=== PATIENT | male | born 1970 | race Two or more races ===

== ENCOUNTER 2024-02-06 11:10 | Emergency (ER) | payer BC, OTHER, SELFPAY ==
[2024-02-06 11:12] VITALS: BP 155/97
[2024-02-06 11:33] LABS: % Basophils 0.5 % (0-2); % Eosinophils 0.4 % (0-6); % Immature Granulocytes 0.3 % (0-0.5); % Lymphocytes 38.5 % (20.5-51.1); % Monocytes 7.9 % (1.7-9.3); % Neutrophils 52.4 % (42.2-75.2); Absolute Basophils 0.1 10^3/uL (0-0.2); Absolute Monocytes 0.8 10^3/uL (0.1-0.6); Absolute Neutrophils 5.4 10^3/uL (1.4-6.5); Hematocrit 47.1 % (39.0-52.0); Hemoglobin 16.7 g/dL (13.0-18.0); Mean Corp Hgb Conc. 35.5 g/dL (33.0-37.0); Mean Corpuscular Hgb 32.7 pg (27.0-31.0); Mean Corpuscular Volume 92.2 fL (80.0-94.0); Mean Platelet Volume 10.1 fL (7.4-10.4); Nucleated Red Blood Cells % 0 % (-); Platelet Count 259 10^3/uL (130-400); Red Blood Cell Count 5.11 10^6/uL (4.70-6.10); Red Cell Dist. Width 13.2 % (11.5-14.5); White Blood Cell Count 10.4 10^3/uL (4.8-10.8)
[2024-02-06 11:50] LABS: ALT (SGPT) 43 U/L (0-50); AST (SGOT) 40 U/L (17-59); Albumin 5.3 g/dl (3.5-5.0); Alkaline Phosphatase 78 U/L (38-126); Blood Urea Nitrogen 19 mg/dl (9-20); Calcium 10.3 mg/dl (8.4-10.2); Carbon Dioxide 25 mmol/L (22-30); Chloride 101 mmol/L (98-107); Glucose 109 mg/dl (70-99); Potassium 4.4 mmol/L (3.5-5.1); Sodium 142 mmol/L (135-145); Total Bilirubin 1.1 mg/dl (0.2-1.3); Total Protein 8.1 g/dl (6.3-8.2); eGFR > 60.00
--- NOTE | 2024-02-06 12:21 | ED.GENMED ---
Addendum entered and electronically signed by Kailee Johnston PA-C 02/07/24 15:16:
I was notified that patient's medication was not sent to the pharmacy. I transmitted Zofran to his pharmacy.
Original Note:
History of Present Illness
General
Chief Complaint: Dizziness
Source: patient
Exam Limitations: none
Time Seen by Provider: 02/06/24 11:46
Nursing documentation reviewed up to this point in time: agreed with
History of Present Illness
History of Present Illness:
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
room was spinning and he got queasy, he had to lay back down and be still for the symptoms to resolve. He felt little better and a short while later got up and walked to his kitchen at 715 and again the spinning suddenly got worse, he laid down and
he felt better. Same thing happened later when he got up to go to the bathroom so he came here.
Patient denies headache, no recent trauma, denies change in vision.
He states his mother has severe vertigo.
Past History
Past History
ED Past Medical History: HTN
ED Past Surgical History: None
Phy Exam
Physical Exam
Physical Exam:
GENERAL: No acute distress. A&Ox3.
CONSTITUTIONAL: Afebrile.
EYES: PERRL, conjunctivae normal
Neck: Supple
ENMT: moist mucus membranes, Pharynx nl, TMs normal
RESPIRATORY: Regular respirations, nonlabored, lungs clear.
CARDIOVASCULAR: Regular rate and rhythm, no murmurs, no rubs.
GI: Soft, nontender, normal BS
MUSCULOSKELETAL: Moves with ease. Well perfused.
SKIN: Warm, dry, pink
PSYCH: Normal mood and affect. Well kept, interactive and appropriate
NEUROLOGIC: Awake, alert and oriented. No focal neurological deficits. Asymptomatic laying still on stretcher. Finger to nose intact. Strength equal throughout.
Course
Orders/Labs/Results
Orders:
Orders
02/06/24 11:16
Electrocardiogram (*1) Urgent
Reason for Study: Vertigo / Dizzy
EKG- Treatment ONCE
02/06/24 11:19
CMP [Comprehensive Metabolic Panel] Urgent
Complete Blood Count/With Diff Urgent
02/06/24 12:20
Physical Therapy Consult [Pt Eval And Treat] Urgent
Treatment: severe room spinning dizziness
Activity Level: As Tolerated
02/06/24 14:15
Meclizine [Antivert] 25 mg PO NOW STA
02/06/24 14:35
CT Head & Neck Angio W/wo IV Urgent
Comment:
Reason For Exam: dizziness
02/06/24 17:11
Ondansetron Injectable [Zofran] 4 mg IV NOW STA
Abnormal Lab Results
02/06/24
11:19
MCH 32.7 H pg
(27.0-31.0)
Absolute Lymphs (auto) 4.0 H 10^3/uL
(1.2-3.4)
Absolute Monos (auto) 0.8 H 10^3/uL
(0.1-0.6)
Glucose 109 H mg/dl
(70-99)
Calcium 10.3 H mg/dl
(8.4-10.2)
Albumin 5.3 H g/dl
(3.5-5.0)
02/06/24 11:19
02/06/24 11:19
Vital Signs
Initial and Last Documented VS:
Initial Vital Signs
Temp Pulse Resp BP Pulse Ox
98.0 F 79 18 155/97 100
02/06/24 11:12 02/06/24 11:12 02/06/24 11:12 02/06/24 11:12 02/06/24 11:12
Last Documented Vital Signs
Temp Pulse Resp BP Pulse Ox
98.0 F 76 12 140/98 99
02/06/24 11:12 02/06/24 16:31 02/06/24 16:31 02/06/24 16:30 02/06/24 16:31
MDM/Problems Addressed
Differential Diagnosis Includes:
BPPV, vestibular neuritis, CVA
MDM/Problems Addressed:
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
room was spinning and he got queasy, he had to lay back down and be still for the symptoms to resolve. He felt little better and a short while later got up and walked to his kitchen at 7:15 and again the spinning suddenly got worse, he laid down
and he felt better. Same thing happened later when he got up to go to the bathroom so he came here.
Patient denies headache, no recent trauma, denies change in vision.
He states his mother has severe vertigo.
EKG NSR
P/T in to evaluate, states negative for BPPV, negative for vestibular neuritis with use of 'binoculars,' neg orthostasis, she states his neck is significantly stiffened with a rotation to either side of only 10 degrees due to his chronic neck
issues. His neck muscles are very tight and she wonders if it might be a cervicogenic headache.
2:15 p.m.
In to re evaluate
Pt states he's been in P/T twice a week for past two months for neck pain and pain in left arm, these are nothing new
He has been up and ambulating with P/T and not feeling that room spinning dizziness
Sitting up on edge of bed now with no significant room spinning like earlier but his head still feels 'foggy'
This feeling is unlike any he's had in past with his neck problems
Will trial Meclizine
Case discussed with Dr. Arguello, will do CTA head and neck
5:00 p.m.
Head and neck CTA neg
All results discussed with pt. His doctors are all in [place], he state he will have no problem getting in to see his Neurologist within the next week
Return instructions reviewed.
Pt denies room spinning, lightheadedness, headache but head still 'feels foggy.'
Offered wheelchair but pt would rather walk out.
Pt ambulated out with normal gait at discharge
*Critical Care Note
Total Time (30-74mins, 75-104mins- exclusive of procedures): Not Applicable
ED Attending Note
-
Portions of this chart may have been created with voice recognition software.� Occasional wrong word or��sound alike� substitutions may have occurred due to the inherent limitations of voice recognition software.
Discharge Plan
Departure
Patient Disposition: Home (Routine Discharge)
Date of Disposition: 02/06/24
Time of Disposition: 16:59
Patient with high blood pressure during this ER visit?: Yes
Condition: Fair
Discharge Problem:
Dizziness
Instructions: Dizziness, Nonvertigo, (DC), BLOOD PRESSURE
Prescriptions:
New
ondansetron 4 mg tablet,disintegrating
4 mg PO Q6H PRN (Reason: nausea/vomiting) Qty: 14 0RF
meclizine 25 mg tablet
25 mg PO TID PRN (Reason: dizziness) Qty: 15 0RF
No Action
valsartan [Diovan] 160 MG capsule
160 mg PO DAILY
methylphenidate HCl [Ritalin] 20 MG tablet
20 mg PO BID
tramadol 50 MG tablet
50 mg PO TID PRN (Reason: pain)
Referrals:
Your, Neurologist in [place] [Other] - Call in 1-3 days for appt (You should be seen within the next week)
NONE,* [Family Provider] -
Activity Restrictions/Additional Instructions:
As we discussed, I sent a prescription to your pharmacy for meclizine to try to see if it helps the sensation in your head and room spinning sensation if it occurs again.
I also sent a prescription for Zofran to use as needed for nausea.
Call your neurologist tomorrow make an appointment for sometime in the next week. Take copies of all results with you
Return here immediately for headache unrelieved with Tylenol, repeated vomiting, confusion, worsening dizziness or feeling sicker in any way.
Interventions
Interventions:
*Risk Screen - Suicide Last Done: 02/06/24 12:40
*General Assessment Last Done: 02/06/24 11:12
*Neglect/Abuse Screening Last Done: 02/06/24 12:40
ED- Fall Risk Assessment Last Done: 02/06/24 12:40
*ED COVID-19 Vaccine History Last Done: 02/06/24 11:12
*Nursing Disposition Last Done: 02/06/24 17:22
ED- Neurological Assessment Last Done: 02/06/24 12:40
Discharge Date and Time
Print Language: [id number]
[2024-02-06 13:35] VITALS: BP 132/84; BP 150/95; BP 157/96
[2024-02-06] MEDS: ANTIVERT 25 MG PO (14:27)
[2024-02-06 15:00] VITALS: BP 140/94
[2024-02-06 16:30] VITALS: BP 140/98
[2024-02-06] MEDS: ZOFRAN 4 MG IV (17:15)
== END 2024-02-06 17:23 | disposition home or self-care (01) ==
LOC: EMR 11:10
PROVIDERS: Emergency Medicine; EMERGENCY PHYSICIAN Emergency Medicine
DX: R42 Dizziness and giddiness (principal); I10 Essential (primary) hypertension
CPT/HCPCS: 99285; 96374; 70496; 70498; 80053; 85025; 93005; Q9967

== ENCOUNTER → 2024-06-03 09:21 | Outpatient (REF) | payer BC, OTHER, SELFPAY | LOC: HWRCS 09:21 | PROVIDERS: ATTENDING PHYSICIAN Internal Medicine Cardiovascular Disease | DX: I10 Essential (primary) hypertension (principal) | CPT/HCPCS: 93306 ==